=== PATIENT | female | born 1970 ===

== ENCOUNTER 2018-09-20 19:09 | Emergency (ER) | payer BC ==
[2018-09-20 19:25] VITALS: BMI 19.1
[2018-09-20 19:27] VITALS: RESP 18
--- NOTE | 2018-09-20 19:43 | ED PDOC ---
Lower Extremity Pain/Injury Time Seen by Provider: 09/20/18 19:23 Chief Complaint (Nursing): Lower Extremity Problem/Injury Chief Complaint (Provider): Lower Extremity Problem/Injury History Per: Patient History/Exam Limitations: no limitations Onset/Duration Of Symptoms: Hrs (1x hour prior to arrival) Current Symptoms Are (Timing): Still Present Severity: Moderate Additional Complaint(s): 47 year old female with no pertinent past medical history presents to the ED for an evaluation of acute right knee pain and swelling that started 1x hour prior to arrival. Patient states that she was coming out of a taxi when she felt a mild twinge of her right knee which gradually and progressively worsened in the next hour until she could not bear weight on her right leg. Patient denies having any falls or recent injuries. PMD: None provided. Past Medical History Reviewed: Historical Data, Nursing Documentation, Vital Signs Vital Signs: Last Vital Signs Temp 98.4 F 09/20/18 19:24 Pulse 68 09/20/18 19:24 Resp 18 09/20/18 19:24 BP 133/86 09/20/18 19:24 Pulse Ox 96 09/20/18 19:24 JAYDEN Report Viewed: Yes - Medical History PMH: No Chronic Diseases - Family History Family History: States: No Known Family Hx - Social History Alcohol: None Drugs: Denies - Home Medications Home Medications: Ambulatory Orders Medication Instructions Recorded Naproxen 375 mg PO Q8 PRN #21 tablet 09/20/18 - Allergies Allergies/Adverse Reactions: Allergies Allergy/AdvReac Type Severity Reaction Status Date / Time No Known Allergies Allergy Verified 09/20/18 19:24 Review of Systems ROS Statement: Except As Marked, All Systems Reviewed And Found Negative Musculoskeletal: Positive for: Other (right knee pain and swelling) Physical Exam - Reviewed Nursing Documentation Reviewed: Yes Vital Signs Reviewed: Yes - Physical Exam Appears: Positive for: Well, Non-toxic, No Acute Distress Head Exam: Positive for: ATRAUMATIC, NORMOCEPHALIC Skin: Positive for: Normal Color, Warm, Dry Extremity: Positive for: Other (moderate effusion noted to right knee. Swelling noted to the popliteal fossa of right knee.). Negative for: Calf Tenderness Neurologic/Psych: Positive for: Alert, Oriented (3x ) - ECG O2 Sat by Pulse Oximetry: 96 (RA) Pulse Ox Interpretation: Normal - Progress ED Course And Treament: duplex of right leg: neg for dvt xry of knee: no acute fx placed in knee immobilizer and given crutch instructions Medical Decision Making Medical Decision Makin:23 Initial impression: 47 year old female with atraumatic knee pain Initial plan: * XRay knee right 3 views * US duplex lower extrm vein right * motrin tab 600 mg PO * reevaluation Scribe Attestation: Documented byGinger Mirza, acting as a scribe for Drew Grant PA-C. Provider Scribe Attestation: All medical record entries made by the Scribe were at my direction and personally dictated by me. I have reviewed the chart and agree that the record accurately reflects my personal performance of the history, physical exam, medical decision making, and the department course for this patient. I have also personally directed, reviewed, and agree with the discharge instructions and disposition. Disposition - Clinical Impression Clinical Impression: Strain of right knee - Patient ED Disposition Is Patient to be Admitted: No - Disposition Referrals: Arsenio Ruano MD [Staff Provider] - [facility] [Outside] Disposition: Routine/Home Disposition Time: 22:28 Condition: FAIR Prescriptions: Naproxen 375 mg PO Q8 PRN #21 tablet PRN Reason: Pain, Moderate (4-7) Instructions: Knee Sprain (DC), Ligament Injuries in the Knee (DC) Forms: [facility] ED School/Work Excuse
[2018-09-20 23:40] VITALS: BP 130/78; PULSE 78; TEMP 98; O2SAT 99
--- NOTE | 2018-09-21 09:05 | RAD ---
Date of service: 09/20/2018 PROCEDURE: Right Knee Radiographs. HISTORY: RIGHT KNEE PAIN COMPARISON: None. FINDINGS: BONES: No acute fracture. JOINTS: Mild tricompartmental narrowing. JOINT EFFUSION: Moderate joint effusion. OTHER FINDINGS: None. IMPRESSION: Moderate suprapatellar joint effusion without demonstrated fracture or dislocation. Mild degenerative changes.
--- NOTE | 2018-09-21 09:38 | US ---
Date of service: 09/20/2018 PROCEDURE: Right lower extremity venous duplex Doppler. HISTORY: R/O DVT COMPARISON: None available. TECHNIQUE: Common femoral, superficial femoral, popliteal and posterior tibial veins were evaluated. Flow was assessed with color Doppler, compressibility, assessment of phasic flow and augmentation response. FINDINGS: COMMON FEMORAL VEIN: Unremarkable. SUPERFICIAL FEMORAL VEIN: Unremarkable. POPLITEAL VEIN: Unremarkable. POSTERIOR TIBIAL VEIN: Unremarkable. OTHER FINDINGS: None. IMPRESSION: No evidence of deep venous thrombosis in the right lower extremity.
== END 2018-09-20 23:40 | disposition home or self-care (01) ==
LOC: H.ER 19:09
DX: S83.91XA Sprain of unspecified site of right knee, initial encounter (principal); X50.9XXA Other and unspecified overexertion or strenuous movements or postures, initial encounter; Y92.89 Other specified places as the place of occurrence of the external cause